=== PATIENT | male | born 1960 | race African-American/Black ===

== ENCOUNTER 2023-10-10 11:18 | Inpatient (IN) | payer OTHER ==
[~2023-10-10] VITALS: Ht 172.7 cm; Wt 84.8 kg
[2023-10-10 13:05] LABS: CHLORIDE 108 mEq/L (98-107); POTASSIUM 5.2 mEq/L (3.5-5.1); SODIUM 137 mEq/L (136-145)
[2023-10-10 13:06] LABS: CALCIUM 9.7 mg/dL (8.7-10.4); CARBON DIOXIDE 19 mEq/L (21-32)
[2023-10-10 13:11] LABS: CREATININE 1.8 mg/dL (0.6-1.3); GLUCOSE 199 mg/dL (70-105); UREA NITROGEN BLOOD 30 mg/dL (9-23)
[2023-10-10 13:12] LABS: TROPONIN I HIGH SENSITIVITY 48 ng/L (3.0-53)
[2023-10-10 13:15] LABS: BASOPHILS % 0.4 % (0.0-2.0); EOSINOPHILS % 0.1 % (0.0-5.0); HEMATOCRIT. 44.4 % (42.0-52.0); LYMPHOCYTES % 7.8 % (20.0-50.0); MEAN CORPUSCULAR HEMOGLOBIN 29.9 pg (28.0-32.0); MEAN CORPUSCULAR HGB CONC 31.6 g/dL (31.0-37.0); MEAN CORPUSCULAR VOLUME 94.5 fL (80.0-94.0); MEAN PLATELET VOLUME 9.6 fl (7.4-10.4); MONOCYTES % 10.1 % (2.0-8.0); NEUTROPHILS % 81.6 % (40.0-76.0); PLATELET 258 x1000/uL (130-400); RED CELL DISTRIBUTION WIDTH 14.6 % (11.6-14.6); WHITE BLOOD COUNT 12.1 x1000/uL (4.5-11.0)
[2023-10-10 13:56] LABS: D-DIMER 3.42 mg/L FEU (<0.50); INR 1.3; PROTHROMBIN TIME 14.1 sec (9.6-11.0)
[2023-10-10] MEDS: SODIUM CHLORIDE 0.9% 1,000 ML IV ONE (14:49)
[2023-10-10 15:26] LABS: CLARITY URINE CLEAR (CLEAR); COLOR URINE YELLOW (YELLOW); GLUCOSE URINE NEGATIVE (NEGATIVE); KETONES URINE TRACE (NEGATIVE); LEUKOCYTE ESTERASE URINE NEGATIVE (NEGATIVE); NITRITE URINE NEGATIVE (NEGATIVE); OCCULT BLOOD URINE NEGATIVE (NEGATIVE); PH URINE 5.5 (4.5-8.0); PROTEIN URINE TRACE (NEGATIVE); SPECIFIC GRAVITY URINE 1.017 (1.005-1.030)
[2023-10-10 15:42] LABS: ALANINE AMINOTRANSFERASE 176 IU/L (10-49); ALBUMIN 4.4 g/dL (3.2-4.8); ASPARTATE AMINOTRANSFERASE 109 IU/L (<34); BILIRUBIN DIRECT 0.7 mg/dL (<=3.0); BILIRUBIN TOTAL 1.6 mg/dL (0.1-1.0); PROTEIN TOTAL 7.5 g/dL (6.0-8.3)
[2023-10-10 15:51] LABS: BACTERIA URINE NONE SEEN; HYALINE CASTS URINE 0-5 /lpf; RBC URINE 0-2 /hpf (0-2); SQUAMOUS EPITHELIAL CELL URINE 1+ /lpf (RARE/1+); WBC URINE 0-2 /hpf (0-2)
[2023-10-10 19:00] VITALS: BP 136/94; RESP 18; TEMP 97.5; O2SAT 97
[2023-10-10] MEDS ORDERED: HYDROCODONE/ACETAMINOPHEN 10/325MG TABLET PO PRN (19:30)
[2023-10-10] MEDS ORDERED: NALOXONE HCL 0.4MG/ML VIAL IV PRN (19:30)
[2023-10-10] MEDS: AMLODIPINE 10MG TABLET PO SCH (20:53)
[2023-10-11] VITALS: BP 124/95; RESP 20; TEMP 96.1; O2SAT 97
[2023-10-11 01:25] VITALS: BP 124/95; PULSE 104; RESP 20; TEMP 96.1
[2023-10-11] MEDS ORDERED: CLONIDINE 0.1MG TABLET PO PRN (11:00)
[2023-10-11] MEDS ORDERED: ONDANSETRON HCL 4MG/2ML INJ IV PRN (11:00)
[2023-10-11] MEDS ORDERED: DOCUSATE SODIUM 100MG CAPSULE PO PRN (11:00)
[2023-10-11] MEDS ORDERED: ACETAMINOPHEN 325MG TABLET PO PRN (11:00)
[2023-10-11] MEDS ORDERED: IPRATROPIUM/ALBUTEROL 0.5-3(2.5)MG/3ML NEB HHN PRN (11:00)
[2023-10-11 12:06] LABS: CHLORIDE 108 mEq/L (98-107); SODIUM 143 mEq/L (136-145)
[2023-10-11 12:07] LABS: CALCIUM 8.9 mg/dL (8.7-10.4); CARBON DIOXIDE 27 mEq/L (21-32)
[2023-10-11 12:08] LABS: BASOPHILS % 0.3 % (0.0-2.0); EOSINOPHILS % 0.5 % (0.0-5.0); HEMATOCRIT. 43.1 % (42.0-52.0); HEMOGLOBIN. 13.7 g/dL (14.0-18.0); LYMPHOCYTES % 7.6 % (20.0-50.0); MEAN CORPUSCULAR HGB CONC 31.7 g/dL (31.0-37.0); MEAN CORPUSCULAR VOLUME 94.4 fL (80.0-94.0); MEAN PLATELET VOLUME 9.5 fl (7.4-10.4); MONOCYTES % 8.1 % (2.0-8.0); NEUTROPHILS % 83.5 % (40.0-76.0); PLATELET 232 x1000/uL (130-400); RED BLOOD CELL COUNT 4.56 mill/uL (4.7-6.1); RED CELL DISTRIBUTION WIDTH 14.6 % (11.6-14.6); WHITE BLOOD COUNT 9.4 x1000/uL (4.5-11.0)
[2023-10-11 12:12] LABS: CREATINE KINASE MB FRACTION 2.5 ng/mL (0.5-3.6); CREATININE 0.8 mg/dL (0.6-1.3); GLUCOSE 79 mg/dL (70-105); TROPONIN I HIGH SENSITIVITY 17 ng/L (3.0-53); UREA NITROGEN BLOOD 16 mg/dL (9-23)
[2023-10-11 12:14] LABS: ALANINE AMINOTRANSFERASE 10 IU/L (10-49); ALBUMIN 3.8 g/dL (3.2-4.8); ASPARTATE AMINOTRANSFERASE 23 IU/L (<34); BILIRUBIN DIRECT 0.3 mg/dL (<=3.0); CREATINE KINASE 396 IU/L (46-171); PROTEIN TOTAL 5.8 g/dL (6.0-8.3)
[2023-10-11 12:16] LABS: T4 FREE 1.33 ng/dL (0.89-1.76); THYROID STIMULATING HORMONE 1.02 uIU/mL (0.55-4.78)
[2023-10-11 12:44] LABS: POTASSIUM 2.8 mEq/L (3.5-5.1)
[2023-10-11] MEDS: SODIUM CHLORIDE 0.45% 1,000 ML IV SCH (14:34)
[2023-10-11] MEDS: ENOXAPARIN 40MG/0.4ML SYR SUBCUT SCH (14:35)
[2023-10-11] MEDS: PANTOPRAZOLE SODIUM 40 MG/VIAL IV SCH (14:35)
[2023-10-11] MEDS: FUROSEMIDE 20MG/2ML VIAL IVP SCH (14:35)
[2023-10-11] MEDS: ASPIRIN 81MG TABLET PO SCH (14:36)
[2023-10-11] MEDS: POTASSIUM CHLORIDE 20MEQ TABLET SR PO NR (14:36)
[2023-10-11] MEDS: DILTIAZEM HCL 30MG TABLET PO SCH (17:00)
[2023-10-11 19:43] VITALS: BP 115/79; RESP 18; TEMP 96.4; O2SAT 97
[2023-10-12] VITALS: BP 103/71; RESP 16; TEMP 96.6; O2SAT 100
[2023-10-12 04:00] VITALS: BP 118/88; RESP 18; TEMP 97.7; O2SAT 100
[2023-10-12 08:00] VITALS: BP 137/69; RESP 20; TEMP 98; O2SAT 97
[2023-10-12 08:27] LABS: BASOPHILS % 0.5 % (0.0-2.0); HEMATOCRIT. 43.5 % (42.0-52.0); HEMOGLOBIN. 14.1 g/dL (14.0-18.0); LYMPHOCYTES % 9.7 % (20.0-50.0); MEAN CORPUSCULAR HEMOGLOBIN 30.5 pg (28.0-32.0); MEAN CORPUSCULAR HGB CONC 32.4 g/dL (31.0-37.0); MEAN CORPUSCULAR VOLUME 94.1 fL (80.0-94.0); MONOCYTES % 9.9 % (2.0-8.0); NEUTROPHILS % 78.9 % (40.0-76.0); PLATELET 252 x1000/uL (130-400); RED BLOOD CELL COUNT 4.62 mill/uL (4.7-6.1); RED CELL DISTRIBUTION WIDTH 14.5 % (11.6-14.6); WHITE BLOOD COUNT 8.7 x1000/uL (4.5-11.0)
[2023-10-12 08:30] LABS: CHLORIDE 105 mEq/L (98-107); POTASSIUM 4.4 mEq/L (3.5-5.1); SODIUM 135 mEq/L (136-145)
[2023-10-12 08:31] LABS: CARBON DIOXIDE 24 mEq/L (21-32)
[2023-10-12 08:32] LABS: CALCIUM 9.3 mg/dL (8.7-10.4)
[2023-10-12 08:36] LABS: GLUCOSE 181 mg/dL (70-105)
[2023-10-12 08:37] LABS: UREA NITROGEN BLOOD 25 mg/dL (9-23)
[2023-10-12 08:38] LABS: ALANINE AMINOTRANSFERASE 139 IU/L (10-49); ALBUMIN 4.1 g/dL (3.2-4.8); ASPARTATE AMINOTRANSFERASE 66 IU/L (<34)
[2023-10-12 08:39] LABS: BILIRUBIN DIRECT 0.5 mg/dL (<=3.0); BILIRUBIN TOTAL 1.4 mg/dL (0.1-1.0)
[2023-10-12 08:41] LABS: CREATININE 1.4 mg/dL (0.6-1.3)
[2023-10-12 12:00] VITALS: BP 140/53; RESP 20; TEMP 99; O2SAT 100
[2023-10-12 16:00] VITALS: BP 104/81; RESP 18; TEMP 97.6; O2SAT 100
[2023-10-12 20:00] VITALS: BP_SYST 111; BP_DIAS 83; BP_DIAS 84; PULSE 94; RESP 16; RESP 19; TEMP 97.9; TEMP 98; O2SAT 100
[2023-10-13] VITALS: BP 121/85; RESP 18; TEMP 98.8; O2SAT 100
[2023-10-13 04:00] VITALS: BP 123/87; RESP 16; TEMP 98.8; O2SAT 100
[2023-10-13 08:00] VITALS: BP 112/85; RESP 18; TEMP 97.9; O2SAT 98
[2023-10-13 12:00] VITALS: BP 111/83; RESP 18; TEMP 97.8; O2SAT 100
[2023-10-13 16:00] VITALS: BP 118/84; RESP 18; TEMP 97.7; O2SAT 96
[2023-10-13 20:00] VITALS: BP 113/83; RESP 20; TEMP 96.6; O2SAT 97
[2023-10-14] VITALS: BP 117/85; RESP 19; TEMP 96.8; O2SAT 98
[2023-10-14 04:00] VITALS: BP 118/81; RESP 19; TEMP 96.6; O2SAT 100
[2023-10-14 08:00] VITALS: BP 120/85; RESP 20; TEMP 96.4; O2SAT 100
[2023-10-14 12:00] VITALS: BP 125/83; RESP 19; TEMP 96.7; O2SAT 100
[2023-10-14 16:00] VITALS: BP 115/79; RESP 18; TEMP 97.8; O2SAT 99
[2023-10-14 20:00] VITALS: BP 123/79; RESP 18; TEMP 97.9; O2SAT 97
[2023-10-15] VITALS: BP 111/78; RESP 18; TEMP 96.3; O2SAT 98
[2023-10-15 04:00] VITALS: BP 117/83; RESP 18; TEMP 97.2; O2SAT 97
[2023-10-15 07:48] VITALS: BP 128/72; RESP 18; TEMP 98; O2SAT 99
[2023-10-15] MEDS: FAMOTIDINE 20MG/2ML VIAL IV SCH (08:40)
[2023-10-15 12:00] VITALS: BP 128/87; RESP 20; TEMP 98.4; O2SAT 100
[2023-10-15 15:50] VITALS: BP 128/64; RESP 20; TEMP 98.7; O2SAT 99
[2023-10-16 05:59] LABS: CHLORIDE 101 mEq/L (98-107); POTASSIUM 4.5 mEq/L (3.5-5.1); SODIUM 137 mEq/L (136-145)
[2023-10-16 06:00] LABS: CARBON DIOXIDE 30 mEq/L (21-32)
[2023-10-16 06:05] LABS: CREATININE 1.3 mg/dL (0.6-1.3); GLUCOSE 151 mg/dL (70-105); UREA NITROGEN BLOOD 17 mg/dL (9-23)
[2023-10-16 06:28] LABS: BASOPHILS % 0.4 % (0.0-2.0); EOSINOPHILS % 1.1 % (0.0-5.0); HEMATOCRIT. 47.8 % (42.0-52.0); HEMOGLOBIN. 15.3 g/dL (14.0-18.0); LYMPHOCYTES % 9.3 % (20.0-50.0); MEAN CORPUSCULAR HEMOGLOBIN 29.8 pg (28.0-32.0); MEAN PLATELET VOLUME 9.2 fl (7.4-10.4); MONOCYTES % 8.8 % (2.0-8.0); NEUTROPHILS % 80.4 % (40.0-76.0); PLATELET 269 x1000/uL (130-400); RED BLOOD CELL COUNT 5.14 mill/uL (4.7-6.1); RED CELL DISTRIBUTION WIDTH 14.1 % (11.6-14.6)
[2023-10-16 12:58] VITALS: BP 116/84; RESP 18; TEMP 97.9; O2SAT 98
[2023-10-16 16:00] VITALS: BP 112/76; RESP 16; TEMP 98.2; O2SAT 98
[2023-10-16] MEDS ORDERED: ASPI-1160 PO (16:25)
[2023-10-16] MEDS ORDERED: FURO-151 MT (16:25)
[2023-10-16] MEDS ORDERED: DILT30TA37 PO (16:25)
[2023-10-16 18:17] VITALS: BP 111/70; PULSE 97; TEMP 98; O2SAT 99
== END 2023-10-16 18:40 | disposition home or self-care (01) | DRG 558 ==
LOC: ER 11:18 → 5WST 14:56 → 8WST 23:09
PROVIDERS: ADMIT Internal Medicine; ATTEND Internal Medicine
DX: M62.82 Rhabdomyolysis (principal); N17.9 Acute kidney failure, unspecified; E87.20 Acidosis, unspecified; E87.8 Other disorders of electrolyte and fluid balance, not elsewhere classified; F17.200 Nicotine dependence, unspecified, uncomplicated; I11.0 Hypertensive heart disease with heart failure; I50.9 Heart failure, unspecified; R06.03 Acute respiratory distress; R73.9 Hyperglycemia, unspecified; R74.01 Elevation of levels of liver transaminase levels; Z79.899 Other long term (current) drug therapy
CPT/HCPCS: 36415; 71045; 76770; 78580; 80048; 80061; 80076; 81003; 82550; 82553; 83036; 83605; 83880; 84145; 84439; 84443; 84480; 84484; 85025; 85379; 93005; 93306; 93923; 93970; 99291; J1650; J1940; J2470; J3490